=== PATIENT | male | born 1990 | race African-American/Black ===

== ENCOUNTER 2020-03-12 15:27 | Emergency (ER) | payer MEDICAID ==
[~2020-03-12] VITALS: Ht 175.3 cm; Wt 86.0 kg
[2020-03-12 15:33] VITALS: BP 136/79
== END 2020-03-12 16:19 | disposition home or self-care (01) ==
LOC: ER 15:27
DX: J45.909 Unspecified asthma, uncomplicated (principal); F12.10 Cannabis abuse, uncomplicated; Z76.0 Encounter for issue of repeat prescription
CPT/HCPCS: 99283

== ENCOUNTER 2020-03-14 20:40 | Emergency (ER) | payer MEDICAID ==
[~2020-03-14] VITALS: Ht 175.3 cm; Wt 68.0 kg
[2020-03-14 20:43] VITALS: BP 94/73
== END 2020-03-14 21:54 | disposition home or self-care (01) ==
LOC: ER 20:40
DX: S61.411A Laceration without foreign body of right hand, initial encounter (principal); W26.8XXA Contact with other sharp object(s), not elsewhere classified, initial encounter; Y93.89 Activity, other specified; Y92.89 Other specified places as the place of occurrence of the external cause; Y99.8 Other external cause status; J45.909 Unspecified asthma, uncomplicated
CPT/HCPCS: 99281